=== PATIENT | male | born 1995 | race Caucasian/White ===

== ENCOUNTER 2021-01-18 11:44 | Emergency (ER) | payer OTHER ==
[~2021-01-18] VITALS: Ht 180.3 cm; Wt 86.4 kg
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
[2021-01-18 15:48] VITALS: BP 129/93
[2021-01-18] MEDS ORDERED: KETO10TAB PO (16:25)
[2021-01-18] MEDS ORDERED: KETOROLAC 30 MG/ML 1ML VIAL IM ONE (16:25)
== END 2021-01-18 17:08 | disposition home or self-care (01) ==
LOC: M ED 11:44
DX: F07.81 Postconcussional syndrome (principal); S00.12XA Contusion of left eyelid and periocular area, initial encounter; M54.2 Cervicalgia; Y04.8XXA Assault by other bodily force, initial encounter; Y92.9 Unspecified place or not applicable; Y93.9 Activity, unspecified; Y99.8 Other external cause status
CPT/HCPCS: 70450; 70486; 96372; 99283; J1885